=== PATIENT | male | born 1950 | race Caucasian/White ===

== ENCOUNTER 2018-07-27 09:42 | Outpatient (REF) | payer BC, SELFPAY ==
[2018-07-27 20:39] LABS: Anion Gap 7.6 mmol/L (3-11); BUN 22 mg/dL (7-18); CO2 29.4 mmol/L (21.0-32.0); CREATININE 1.26 mg/dL (0.70-1.30); Calcium 9.3 mg/dL (8.5-10.1); Chloride 105 mmol/L (98-107); Estimated GFR 57.44 (mL/min/1.73m2); Glucose 155 mg/dL (70-100); Potassium 4.3 mmol/L (3.5-5.1); Sodium 142 mmol/L (136-145)
== END 2018-07-27 10:02 ==
LOC: NCHCN 09:42
PROVIDERS: PCP Internal Medicine; Visit Provider Physician Assistant Medical
DX: E11.9 Type 2 diabetes mellitus without complications (principal)
CPT/HCPCS: 80048

== ENCOUNTER 2019-05-31 09:32 | Outpatient (REF) | payer BC, SELFPAY ==
[2019-05-31 19:06] LABS: COMMENT (LAB VIEW ONLY) 142.95 mg/dL; Microalb ug/mg Crea 6.9 ug/mg Cr
[2019-05-31 19:26] LABS: Anion Gap 6.1 mmol/L (3-11); BUN 25 mg/dL (7-18); CO2 29.9 mmol/L (21.0-32.0); CREATININE 1.18 mg/dL (0.70-1.30); Calcium 9.2 mg/dL (8.5-10.1); Chloride 103 mmol/L (98-107); Glucose 152 mg/dL (74-106); Potassium 4.4 mmol/L (3.5-5.1); Sodium 139 mmol/L (136-145)
== END 2019-05-31 09:52 ==
LOC: NCHCN 09:32
PROVIDERS: PCP Internal Medicine; Visit Provider Nurse Practitioner Family
DX: E11.9 Type 2 diabetes mellitus without complications (principal)
CPT/HCPCS: 80048; 82043; 82570

== ENCOUNTER 2020-06-06 10:19 | Outpatient (REF) | payer BC, SELFPAY ==
[2020-06-06 19:46] LABS: COMMENT (LAB VIEW ONLY) 155.89 mg/dL; Microalb ug/mg Crea 6.4 ug/mg Cr
[2020-06-06 19:54] LABS: ALT 32 U/L (16-63); AST 17 U/L (15-37); Albumin 3.9 g/dL (3.4-5.0); Alkaline Phosphatase 69 U/L (46-116); Anion Gap 6.8 mmol/L (3-11); BUN 20 mg/dL (7-18); Bilirubin, Total 0.5 mg/dL (0.2-1.0); CO2 26.2 mmol/L (21.0-32.0); CREATININE 1.36 mg/dL (0.70-1.30); Calcium 9.3 mg/dL (8.5-10.1); Chloride 103 mmol/L (98-107); Estimated GFR 52.27 (mL/min/1.73m2); Glucose 179 mg/dL (74-106); Potassium 4.7 mmol/L (3.5-5.1); Sodium 136 mmol/L (136-145); Total Protein 6.8 g/dL (6.4-8.2)
[2020-06-06 20:09] LABS: Calculated LDL 69 mg/dL (<100); Cholesterol 154 mg/dL (<200); HDL Cholesterol 64 mg/dL (40-60); Triglyceride 105 mg/dL (<150)
== END 2020-06-06 10:39 ==
LOC: NCHCN 10:19
PROVIDERS: PCP Internal Medicine; Visit Provider Physician Assistant
DX: E11.9 Type 2 diabetes mellitus without complications (principal); E78.5 Hyperlipidemia, unspecified; I10 Essential (primary) hypertension
CPT/HCPCS: 80053; 80061; 82043; 82570

== ENCOUNTER 2021-09-10 20:41 | Outpatient (REF) | payer OTHER, SELFPAY ==
[2021-09-10 21:00] LABS: ALT 31 U/L (16-63); AST 14 U/L (15-37); Alkaline Phosphatase 74 U/L (46-116); Anion Gap 6.7 mmol/L (3-11); BUN 20 mg/dL (7-18); Bilirubin, Total 0.4 mg/dL (0.2-1.0); CO2 27.3 mmol/L (21.0-32.0); CREATININE 1.4 mg/dL (0.70-1.30); Calcium 9.5 mg/dL (8.5-10.1); Chloride 104 mmol/L (98-107); Glucose 175 mg/dL (74-106); Sodium 138 mmol/L (136-145); Total Protein 6.8 g/dL (6.4-8.2)
== END 2021-09-10 20:42 | disposition home or self-care (01) ==
LOC: LBN 20:41
PROVIDERS: PCP Internal Medicine; Visit Provider Physician Assistant
DX: E11.9 Type 2 diabetes mellitus without complications (principal)
CPT/HCPCS: 80053

== ENCOUNTER 2022-07-15 09:13 | Outpatient (REF) | payer MEDICARE, SELFPAY ==
[2022-07-15 22:02] LABS: Anion Gap 6.7 mmol/L (3-11); BUN 22 mg/dL (7-18); CO2 25.3 mmol/L (21.0-32.0); CREATININE 1.6 mg/dL (0.70-1.30); Calcium 9.3 mg/dL (8.5-10.1); Chloride 101 mmol/L (98-107); Estimated GFR 46.35 (mL/min/1.73m2); Glucose 180 mg/dL (74-106); Potassium 4.7 mmol/L (3.5-5.1); Sodium 133 mmol/L (136-145)
== END 2022-07-15 09:14 | disposition home or self-care (01) ==
LOC: NCHCN 09:13
PROVIDERS: PCP Internal Medicine; Visit Provider Physician Assistant
DX: E11.9 Type 2 diabetes mellitus without complications (principal); N28.9 Disorder of kidney and ureter, unspecified
CPT/HCPCS: 80048

== ENCOUNTER 2022-08-03 09:23 | Day surgery (SDC) | payer MEDICARE, SELFPAY ==
[2022-08-03 09:40] VITALS: BP 134/72; PULSE 74; RESP 16; TEMP 36.4; O2SAT 97
--- NOTE | 2022-08-03 10:40 | ANES.PREOP_ITS ---
General Info Date of Service Date Performed: 08/03/22 Height: 5 ft 8 in Weight: 90.718 kg Body Mass Index (BMI): 30.4 Surgical Procedure: Operation Date: 08/03/22 12:25 Proposed Procedure Side Surgeon p Cataract Extraction with IOL Implant Right Jai Marino MD Meds Allergies and Home Medications Allergies Allergy/AdvReac Type Severity Reaction Status Date / Time Penicillins Allergy Intermediate Anaphylaxis Verified 08/03/22 09:37 Home Medication Medication Instructions Recorded atorvastatin 40 mg tablet 40 mg PO DAILY 07/30/22 canagliflozin 100 mg tablet 100 mg PO DAILY 07/30/22 (Invokana) clotrimazole 1 % topical cream 1 applic topical BID PRN 07/30/22 lisinopril 20 mg tablet 20 mg PO DAILY 07/30/22 metformin 1,000 mg tablet 1,000 mg PO BID 07/30/22 Current Visit Medications: Current Medications Generic Name Dose Route Start Last Admin Trade Name Freq PRN Reason Stop Dose Admin Acetaminophen 1,000 mg 08/03/22 06:00 Acetaminophen 500 Mg Tab PO Q4H PRN PRN Miscellaneous Medication 0 ml 08/03/22 06:00 Prednisolone 1%, Moxifloxacin 0.5%, Nepafenac 0.1% 5ml Btl OD DIRECTED [facility] Miscellaneous Medication 0 ml 08/03/22 06:00 Tropicam./Phenyleph. (1/2.5%) 5 Ml Btl OD DIRECTED [facility] Tetracaine HCl 0 ml 08/03/22 06:00 Tetracaine 0.5% 4 Ml Btl OD DIRECTED [facility] PFSH Active Problems Active Problems: Problem Status Onset Code Nuclear sclerotic cataract of right eye H25.11 Medical History Medical History Diabetes mellitus High cholesterol HTN (hypertension) Skin tag Surgical History Surgical History H/O left wrist surgery Hx of colonoscopy Tobacco Smoking/Tobacco Use Status: Former Tobacco Use Alcohol Alcohol Intake: current Alcohol intake frequency: 0-2 drinks per day Alcohol type: beer Substance Use Substance use: Never Substance use type: does not use Vital Signs and Lab Results Vital Signs Most Recent Vital Signs in EMR: Most Recent Vital Signs Temp Pulse Resp BP Pulse Ox 36.4 C L 74 16 134/72 97 08/03/22 09:40 08/03/22 09:40 08/03/22 09:40 08/03/22 09:40 08/03/22 09:40 Point of Care Results Point of Care Results: Finger Stick Blood Glucose 161 08/03/22 09:37 Lab Results Blood Type / Crossmatch: No Data to Display Complete Blood Count: No Data to Display Complete Metabolic Panel: Sodium 133 mmol/L (136-145) L 07/15/22 11:00 Potassium 4.7 mmol/L (3.5-5.1) 07/15/22 11:00 Chloride 101 mmol/L (98-107) 07/15/22 11:00 Carbon Dioxide 25.3 mmol/L (21.0-32.0) 07/15/22 11:00 BUN 22 mg/dL (7-18) H 07/15/22 11:00 Creatinine 1.6 mg/dL (0.70-1.30) H 07/15/22 11:00 Est GFR (CKD-EPI 2020) 46.35 (mL/min/1.73m2) 07/15/22 11:00 Calcium 9.3 mg/dL (8.5-10.1) 07/15/22 11:00 Glucose 180 mg/dL (74-106) H 07/15/22 11:00 Liver Function Panel: No Data to Display Coagulation Panel: No Data to Display Cardiac Panel: No Data to Display Arterial Blood Gas: No Data to Display Venous Blood Gas: No Data to Display Pancreas Panel: No Data to Display Thyroid Panel: No Data to Display Infectious Disease: No Data to Display Blood Cultures: No Data to Display Toxicology Panel: No Data to Display Anesthesia Assessment and Plan Anesthesia History Personal History: PONV Family History: No Family History of Anesthesia Complications Exercise Tolerance Exercise Tolerance: Metabolic Equivalents>4 Cardiac & Pulmonary Exam Cardiac Exam: Normal S1/S2 Heart Sounds Pulmonary Exam: Clear Bilateral Breath Sounds Implantable Cardiac Device Does patient have a Pacemaker or an ICD?: No Airway Exam Known Difficult Airway: No Mallampati Class: 2 Mouth Opening: Normal (> 3cm) Thyromental Distance: Greater than 3 cm Neck Range of Motion: Full ROM Neck Circumference: Normal Teeth Condition: Normal Dentition (some chipped) ASA Classification ASA Score: ASA 2 Emergency Case?: No NPO Status NPO Status: NPO Clears >2 hours, Solids >8 hours Anesthesia Plan Resuscitation Status: Full Code Anesthesia Technique: MAC Anesthesia Airway Planned: Natural Airway Monitors Used: Standard Monitors
[2022-08-03] MEDS: Tetracaine 0.5% 4 ML BTL OD (11:23)
[2022-08-03] MEDS: Lidocaine 2% Jelly 6 ML SYR (11:24)
[2022-08-03] MEDS: Povidone-Iodine Ophth 30 ML BTL (11:25)
[2022-08-03] MEDS: Balanced Salt Soln.-PLUS 500 ML BAG (11:30)
[2022-08-03] MEDS: Duovisc Viscoelastic System EACH 1 EACH (11:30)
[2022-08-03] MEDS: Lidocaine 1% Pres-Free 5 ML VIAL (11:32)
[2022-08-03 11:35] VITALS: BMI 30.4
[2022-08-03 11:49] VITALS: BP 120/82; PULSE 76; RESP 16; TEMP 36.6; O2SAT 97
--- NOTE | 2022-08-03 11:49 | ROE_ITS ---
Date of service: 08/03/22 Time of Service: 11:49 Operative Note Operative Note DATE OF PROCEDURE: 08/03/22 PRE-OP DIAGNOSIS: Nuclear cataract, right eye POST-OP DIAGNOSIS: same PROCEDURE: Cataract extraction using phacoemulsification with intraocular lens implant, right eye SURGEON: Jai Marino ANESTHESIA TYPE: Local By Surgeon and MAC Refer to Anesthesia Record ESTIMATED BLOOD LOSS: 0 PATHOLOGY: none sent COMPLICATIONS: None Patient was transported to: same day Patient's condition: stable Implants: [employer]nis Eyhance [id number] Indications: Progressive visual loss due to cataract, right eye Procedure Description: CATARACT SURGERY OPERATIVE REPORT PREOPERATIVE DIAGNOSIS: 1. Nuclear cataract, right eye POSTOPERATIVE DIAGNOSIS: Same OPERATION: 1. Cataract extraction using phacoemulsification with posterior chamber intraocular lens implant, right eye. IOL: IOL Hospital Insurance Clerk/Model: [employer] Chago Tecnis Eyhance DIB00 IOL Power: + 14.5 diopters IOL Serial Number: [id number] Optic Diameter: 6.0mm Haptic/Overall Diameter: 13.0mm PHACO INFO: [employer] ([employer]on Vision System with OZil and Active Fluidics Cumulative Dispersed Energy (CDE): 9.54 seconds SURGEON: Jai Marino MD, PATRICK ANESTHESIA: Monitored Anesthesia Care (MAC), with local sub-tenon's anesthetic infiltration COMPLICATIONS: None SPECIMENS: None INDICATIONS FOR PROCEDURE: The patient is a 71-year-old gentleman with history of diminished visual acuity in his right eye secondary to the development of nuclear cataract. The option of cataract surgery was offered to the patient and he wished to proceed. PROCEDURE: The correct surgical eye was identified and marked as the right eye and the pupil was dilated in the preoperative area using mydriatics and cycloplegics. The dilated pupil size was 7.0 mm. The patient elected to proceed without oral sedation. The patient was brought to the operating room where cardiopulmonary monitoring was instituted and surgical time-out was performed, confirming the correct operative eye and IOL power. Topical anesthesia was administered and ophthalmic povidone-iodine 5% was instilled into the conjunctival fornices. Lidocaine gel was applied to the cornea and the ammy-ocular area was prepped with Betadine 10% solution and draped in the usual sterile fashion for intraocular surgery, including an aperture drape. A Tegaderm transparent film dressing was cut in half and used to cover the lashes and lid margins. Care was taken to sequester the lashes and lid margins under the Tegaderm dressing. A lid speculum was placed between the lids of the operative eye and the [employer] Revalia operating microscope was maneuvered into position. Shanice scissors were then used to make a conjunctival buttonhole approximately 6mm posterior to the limbus in the inferonasal quadrant. Blunt dissection was carried out to expose bare sclera, and a blunt-tipped sub-tenon?s anesthesia cannula was introduced and passed posteriorly along the globe where non- preserved plain lidocaine was injected into posterior sub-Tenon?s space. A sideport knife was used to make a paracentesis port inferotemporally. Intraocular phenylephrine/lidocaine was injected into the anterior chamber. The anterior chamber was filled with viscoelastic. A keratome knife was used to construct a 2-plane near-clear corneal tunnel extending 2.0mm into clear cornea superiortemporally. A flap was raised on the anterior capsule and capsulorhexis forceps were used to complete a continuous curvilinear capsulorhexis of 5.5 mm. Balanced salt solution was then used to perform cortical cleaving hydrodis section and nuclear hydrodelineation until the lens could be freely rotated within the capsular bag. The lens nucleus was then disassembled and removed within the capsular bag and iris plane using phacoemulsification. Residual cortical material was removed using the I/A handpiece. The posterior capsule was carefully polished to remove as much residual lens epithelial cells as safely possible. The capsular bag was then inflated and the anterior chamber deepened with viscoelastic. The lens implant described above was inserted into the capsular bag using the [employer] Simplicity pre-loaded injector. A Kuglen hook was used to dial the IOL into position. Residual viscoelastic was then removed first from posterior to the IOL, then from the anterior chamber using the I/A handpiece. The lens implant was noted to center nicely within the capsular bag. The incisions were stromally hydrated, and the anterior chamber was reformed using BSS. Then 0.5cc of moxifloxacin 1.0mg/ml were injected into the capsular bag and anterior chamber. The incisions were checked with a Weck spear and found to be secure. Several drops of ophthalmic povidone-iodine 5% were then applied to the eye followed by two drops of Imprimis combination prednisolone/moxifloxacin/nepafenac solution. The drapes were removed and a clear plastic protective eye shield was placed over the eye. The patient was then returned to [facility] in stable condition.
--- NOTE | 2022-08-03 11:49 | W.PM.DSUDISC ---
Date of service: 08/03/22 Time of Service: 11:49 Discharge Plan Disposition Patient Disposition: Home Discharge Details Attending Provider: Jai Marino Primary Care Provider: Timoteo Lin Meds and New Rx's Prescriptions: No Action atorvastatin 40 mg Tablet 40 mg PO DAILY lisinopril 20 mg Tablet 20 mg PO DAILY metformin 1,000 mg Tablet 1,000 mg PO BID clotrimazole 1 % Cream 1 applic TOPICAL BID PRN Invokana 100 mg Tablet 100 mg PO DAILY Discharge Instructions Stand Alone Forms: Post-op Topical Cataract, Devante Bae (DSU) Discharge Orders Discharge Orders: Discharge Order (Routine); Ordered 08/03/22 Ordered By: Jai Marino DS: Diagnosis Discharge Diagnosis (1) Nuclear sclerotic cataract of right eye: Status: Resolved
--- NOTE | 2022-08-03 12:13 | W.ANESPOSTOP ---
Postoperative Evaluation Date, Time and Location Date Performed: 08/03/22 Time Performed: 12:13 Patient Location: Day Surgery Unit Vital Signs Most Recent Imported Vital Signs: Most Recent Vital Signs Temp Pulse Resp BP Pulse Ox 36.6 C 76 16 120/82 97 08/03/22 11:49 08/03/22 11:49 08/03/22 11:49 08/03/22 11:49 08/03/22 11:49 Pain Score Most Recent Pain Score: Most Recent Pain Score Pain Level 0 08/03/22 11:49 Assessment Mental Status: Awake (Alert & Oriented to Patient Baseline) Airway and Respiratory Function: Patent airway with normal (patient baseline) respiratory exam Cardiovascular Function: Hemodynamically Stable Hydration Status: Adequately Hydrated Nausea & Vomiting: No Nausea or Vomiting Pain: Pt. Denies Any Pain Peripheral Nerve Block: Patient did not receive a nerve block
[2022-08-03 12:15] VITALS: BP 124/87; PULSE 70; RESP 16; TEMP 36.7; O2SAT 95
== END 2022-08-03 12:22 | disposition home or self-care (01) ==
LOC: SUR 09:24
PROVIDERS: PCP Internal Medicine; Visit Provider Ophthalmology
PROC: (CPT 66984; principal; 2022-08-03 12:15)
DX: H25.11 Age-related nuclear cataract, right eye (principal)
CPT/HCPCS: 66984; V2632

== ENCOUNTER 2023-08-06 13:18 | Outpatient (REF) | payer MEDICARE, SELFPAY ==
[2023-08-06 19:32] LABS: Abs Immature Grans 0.04 10^3/uL (0.0-0.06); Absolute Basophil Count 0.03 10^3/uL (0.0-0.2); Absolute Lymphocyte Count 2.05 10^3/uL (1.2-3.4); Absolute Monocyte Count 0.57 10^3/uL (0.1-0.8); Absolute Neutrophil Count 5.26 10^3/uL (1.2-6.7); Basophils % 0.4; Eosinophils % 1.2; HCT 45.9 % (40.0-50.0); HGB 15.4 g/dL (13.5-17.5); Immature Grans % 0.5; Lymphocytes % 25.5; MCHC 33.6 % (32.0-36.0); MCV 92 fL (80-95); MPV 9.7 fL (8.0-11.0); Monocytes % 7.1; Neutrophils % 65.3; Platelet Count 287 10^3/uL (130-400); RBC 4.97 10^6/uL (4.36-5.78); RDW 12.4 % (11.8-14.1); RDW-SD 42.6 fL; WBC 8.05 10^3/uL (4.4-10.8)
[2023-08-06 20:30] LABS: ALT 23 U/L (16-63); AST 12 U/L (15-37); Alkaline Phosphatase 67 U/L (46-116); Anion Gap 10.8 mmol/L (3-11); BUN 34 mg/dL (7-18); Bilirubin, Total 0.5 mg/dL (0.2-1.0); CO2 24.2 mmol/L (21.0-32.0); CREATININE 1.8 mg/dL (0.70-1.30); Calcium 9.7 mg/dL (8.5-10.1); Chloride 103 mmol/L (98-107); Estimated GFR 39.99 (mL/min/1.73m2); Glucose 170 mg/dL (74-106); LDL CHOLESTEROL 63 mg/dL (<100); Potassium 4.5 mmol/L (3.5-5.1); Sodium 138 mmol/L (136-145); Total Protein 7.2 g/dL (6.4-8.2)
[2023-08-06 20:38] LABS: COMMENT (LAB VIEW ONLY) 82.15 mg/dL; Microalb ug/mg Crea 8.6 ug/mg Cr
== END 2023-08-06 13:19 | disposition home or self-care (01) ==
LOC: NCHCN 13:18
PROVIDERS: PCP Internal Medicine; Visit Provider Physician Assistant
DX: E11.9 Type 2 diabetes mellitus without complications (principal)
CPT/HCPCS: 80053; 83721; 82043; 82570; 85025

== ENCOUNTER 2024-08-25 13:34 | Outpatient (REF) | payer MEDICARE, SELFPAY ==
[2024-08-25 18:50] LABS: Abs Immature Grans 0.02 10^3/uL (0.0-0.06); Absolute Basophil Count 0.04 10^3/uL (0.0-0.2); Absolute Eosinophil Count 0.04 10^3/uL (0.0-0.7); Absolute Lymphocyte Count 1.42 10^3/uL (1.2-3.4); Absolute Monocyte Count 0.54 10^3/uL (0.1-0.8); Absolute Neutrophil Count 4.98 10^3/uL (1.2-6.7); Basophils % 0.6 %; Eosinophils % 0.6 %; HCT 45.3 % (40.0-50.0); HGB 15.3 g/dL (13.5-17.5); Immature Grans % 0.3 %; Lymphocytes % 20.2 %; MCHC 33.8 % (32.0-36.0); MCV 95 fL (80-95); MPV 9.2 fL (8.0-11.0); Monocytes % 7.7 %; Neutrophils % 70.6 %; Platelet Count 282 10^3/uL (130-400); RBC 4.78 10^6/uL (4.36-5.78); RDW-SD 44.9 fL; WBC 7.04 10^3/uL (4.4-10.8)
[2024-08-25 19:07] LABS: ALT 32 U/L (16-63); AST 17 U/L (15-37); Albumin 3.8 g/dL (3.4-5.0); Alkaline Phosphatase 70 U/L (46-116); Anion Gap 7.3 mmol/L (3-11); BUN 21 mg/dL (7-18); Bilirubin, Total 0.53 mg/dL (0.2-1.0); CO2 25.7 mmol/L (21.0-32.0); CREATININE 1.3 mg/dL (0.70-1.30); Calcium 9.3 mg/dL (8.5-10.1); Calculated LDL 51 mg/dL (<100); Chloride 106 mmol/L (98-107); Cholesterol 151 mg/dL (<200); Estimated GFR 58.73 (mL/min/1.73m2); Glucose 137 mg/dL (74-106); HDL Cholesterol 88 mg/dL (>or=40); Potassium 4.7 mmol/L (3.5-5.1); Sodium 139 mmol/L (136-145); Total Protein 6.8 g/dL (6.4-8.2); Triglyceride 61 mg/dL (<150)
[2024-08-28 09:39] LABS: Hepatitis C Ab w Rflx HCV PCR Negative (Negative)
== END 2024-08-25 13:35 | disposition home or self-care (01) ==
LOC: NCHCN 13:34
PROVIDERS: PCP Internal Medicine; Visit Provider Physician Assistant
DX: E11.9 Type 2 diabetes mellitus without complications (principal); Z11.59 Encounter for screening for other viral diseases
CPT/HCPCS: 80053; 80061; 86803; 85025

== ENCOUNTER 2025-06-14 10:20 | Outpatient (REF) | payer MEDICARE, SELFPAY ==
[2025-06-14 20:05] LABS: HCT 45.2 % (40.0-50.0); HGB 14.8 g/dL (13.5-17.5); MCH 31.4 pg (27.0-33.0); MCHC 32.7 % (32.0-36.0); MCV 96 fL (80-95); MPV 9.4 fL (8.0-11.0); Platelet Count 298 10^3/uL (130-400); RBC 4.72 10^6/uL (4.36-5.78); RDW 12.8 % (11.8-14.1); RDW-SD 45.4 fL; WBC 7.56 10^3/uL (4.4-10.8)
[2025-06-14 20:24] LABS: ALT 20 U/L (10-49); AST 16 U/L (<34); Albumin 4.2 g/dL (3.2-5.0); Alkaline Phosphatase 75 U/L (46-116); Anion Gap 5.7 mmol/L (3-11); BUN 26 mg/dL (9-23); Bilirubin, Total 0.4 mg/dL (0.2-1.2); CO2 26.3 mmol/L (20.0-31.0); Calcium 9.0 mg/dL (8.3-10.6); Chloride 107 mmol/L (98-107); Glucose 161 mg/dL (74-106); Potassium 5.3 mmol/L (3.5-5.1); Sodium 139 mmol/L (136-145); Total Protein 6.8 g/dL (5.7-8.2)
[2025-06-14 22:18] LABS: Microalb ug/mg Crea 5.4 ug/mg Cr
== END 2025-06-14 10:21 | disposition home or self-care (01) ==
LOC: NCHCN 10:20
PROVIDERS: PCP Internal Medicine; Visit Provider Physician Assistant
DX: I10 Essential (primary) hypertension (principal); E11.9 Type 2 diabetes mellitus without complications
CPT/HCPCS: 80053; 85027; 82043; 82570